=== PATIENT | female | born 1980 | race Caucasian/White ===

== ENCOUNTER 2017-01-14 12:53 | Emergency (ER) | payer OTHER ==
[2017-01-14] MEDS ORDERED: traMADol HCl 50 MG TAB ONE ×2 (13:46→13:48)
--- NOTE | 2017-01-14 18:36 | RAD ---
RIGHT HAND 3 VIEWS: Date: 01/14/17 No definite acute fracture seen. There does appear to be some soft tissue swelling dorsally. On two of the three views, there was an equivocal line in the base of the distal phalanx of the index finge r. If this correlates with a site of pain, then it would be worth a follow-up view of this finger in 7-10 days. Otherwise, no acute bony changes seen. IMPRESSION: Equivocal line at the base of the distal phalanx of the index finger which may or may not be signifi cant. Follow-up requested if this correlates with the exact site of pain. CODE T. POS: HOME
== END 2017-01-14 14:00 | disposition home or self-care (01) ==
LOC: BURERS 12:53
DX: S60.221A Contusion of right hand, initial encounter (principal); W22.8XXA Striking against or struck by other objects, initial encounter

== ENCOUNTER 2017-01-22 13:48 | Emergency (ER) | payer OTHER | END 2017-01-22 14:24 | disposition home or self-care (01) | LOC: BURERS 13:48 | DX: M54.41 Lumbago with sciatica, right side (principal) | CPT/HCPCS: 99283 ==

== ENCOUNTER 2017-05-20 21:01 | Emergency (ER) | payer OTHER | END 2017-05-20 22:40 | disposition home or self-care (01) | LOC: BURERS 21:01 | DX: M54.41 Lumbago with sciatica, right side (principal); Z79.899 Other long term (current) drug therapy | CPT/HCPCS: 99283 ==

== ENCOUNTER 2017-10-12 17:59 | Emergency (ER) | payer OTHER ==
[2017-10-12] MEDS ORDERED: Fentanyl 100 MCG/2 ML VIAL ONE ×2 (18:16→19:49)
[2017-10-12 18:39] LABS: Pregnancy Test - Urine (BHCG) Negative (Negative); Pregu Control Background? CLEAR/WHITE (CLR/WHITE); Pregu Control Bar Appear? YES (CONTROL BAR); Specific Gravity 1.049 (1.002-1.036)
--- NOTE | 2017-10-12 22:50 | CT ---
CT OF THE BRAIN WITHOUT CONTRAST 10/12/[address] was done following trauma. The ventricles are normal in size with no shift. No intr acranial bleeding, mass, or sign of stroke was found. No extra-axial hematoma was seen. The calvariu m appears intact. The sphenoid sinus is clear. IMPRESSION: No acute intracranial findings. POS: HOME
--- NOTE | 2017-10-12 22:53 | CT ---
CT OF THE CERVICAL SPINE 10/12/[address] of the cervical spine was done following trauma. Axial slices were acquired, then coronal and sagittal reconstructions were done. No fracture, dislocation, or disc space narrowing was seen. The C1 to dense distance is normal and t he soft tissues are normal in thickness. No disc herniations were appreciated. There is mild loss of the normal cervical lordosis. The thyroid parenchyma seems rather inhomogeneous, particularly on the right. An elective ultrasound might be contemplated to look for any pathology within the gland. IMPRESSION: 1. No acute findings except for mild loss of lordosis which could be due to muscle spasm. 2. Inhomogeneity of the thyroid gland. See above. Consider elective followup. 1. POS: HOME
--- NOTE | 2017-10-12 23:03 | CT ---
CT OF THE LUMBAR SPINE WITHOUT CONTRAST 10/12/[address] of the lumbar spine was performed for evaluation following trauma. Axial slices were acqui red, then coronal and sagittal reconstructions were done. No fracture was seen at any level. There is no sign of foraminal or central canal stenosis. No disc herniations were appreciated. An incidental finding on the study was an 8 mm calculus in the upper p ole of the left kidney. IMPRESSION: 1. No acute traumatic finding. 2. 8 mm left renal calculus. POS: HOME
== END 2017-10-12 19:56 | disposition home or self-care (01) ==
LOC: BURERS 17:59
DX: S09.90XA Unspecified injury of head, initial encounter (principal); M54.5 Low back pain; M62.838 Other muscle spasm; G89.4 Chronic pain syndrome; H91.90 Unspecified hearing loss, unspecified ear; W10.9XXA Fall (on) (from) unspecified stairs and steps, initial encounter
CPT/HCPCS: 70450; 72125; 72131; 81025; 96372; J3010

== ENCOUNTER 2019-05-28 11:02 | Emergency (ER) | payer OTHER | END 2019-05-28 11:18 | disposition home or self-care (01) | LOC: BURERS 11:02 | DX: S61.304A Unspecified open wound of right ring finger with damage to nail, initial encounter (principal); F17.210 Nicotine dependence, cigarettes, uncomplicated; W20.8XXA Other cause of strike by thrown, projected or falling object, initial encounter | CPT/HCPCS: 99281 ==

== ENCOUNTER 2019-07-23 14:52 | Emergency (ER) | payer OTHER ==
[2019-07-23 15:57] LABS: Pregnancy Test - Urine (BHCG) Negative (Negative); Pregu Control Background? CLEAR/WHITE (CLR/WHITE); Pregu Control Bar Appear? YES (CONTROL BAR)
[2019-07-23 15:58] LABS: Bilirubin Negative (Negative); Blood, Urine Negative (Negative); Clarity Clear (Clear); Glucose, Urine (Dipstick) Negative (Negative); Leukocyte Negative (Negative); Nitrite Negative (Negative); Protein, Urine (Dipstick) Negative (Neg-Trace); Urobilinogen 0.2 mg/dL (Less than 2)
== END 2019-07-23 16:08 | disposition home or self-care (01) ==
LOC: BURERS 14:52
DX: N80.9 Endometriosis, unspecified (principal); F17.210 Nicotine dependence, cigarettes, uncomplicated; Z79.899 Other long term (current) drug therapy
CPT/HCPCS: 81003; 81025; 99283

== ENCOUNTER → 2020-02-08 | Emergency (ER) | payer OTHER | LOC: BURERS 17:07 | DX: J02.8 Acute pharyngitis due to other specified organisms (principal); B97.89 Other viral agents as the cause of diseases classified elsewhere; H92.01 Otalgia, right ear; F17.210 Nicotine dependence, cigarettes, uncomplicated | CPT/HCPCS: 99281 ==